=== PATIENT | male | born 2000 | race Caucasian/White ===

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

== ENCOUNTER 2020-09-05 19:37 | Emergency (ER) | payer BC ==
[2020-09-05] MEDS ORDERED: IBUPROFEN 600 MG TAB PO STA (20:13)
[2020-09-05] MEDS ORDERED: ACETAMINOPHEN TAB 500 MG TAB PO STA (20:13)
--- NOTE | 2020-09-05 20:43 | XR ---
EXAMINATION TYPE: XR chest 1V DATE OF EXAM: 09/05/2020 COMPARISON: NONE HISTORY: Fever and shortness of breath. TECHNIQUE: Single frontal view of the chest is obtained. FINDINGS: There is no focal air space opacity, pleural effusion, or pneumothorax seen. The cardiac silhouette size is within normal limits. The osseous structures are intact. IMPRESSION: No acute process.
[2020-09-05 21:25] VITALS: BP 132/65; PULSE 83; RESP 22; TEMP 100.4
--- NOTE | 2020-09-05 21:28 | ED ---
General Adult HPI - General Chief complaint: Fever Stated complaint: Poss Hernia, Groin Pain Time Seen by Provider: 09/05/20 19:49 Source: patient Mode of arrival: ambulatory Limitations: no limitations - History of Present Illness Initial comments: 20-year-old male patient presents to the emergency department today for evaluation of fever. Patient states that a few hours ago he started to feel chilled and cold. States that he thought he may have a fever. States he is concerned because a few days ago at the gym he was lifting 445 pounds and f elt something pull in his right groin. States he feels a very slight pressure over the area now. He did have a right inguinal hernia repair last year and is concerned he may have damaged the area again. Denies any pain to the area. States he is passing gas and having normal bowel movements. Denies nausea, vomiting, constipation, diarrhea. Denies any cough, nasal congestion, sore throat. Denies any rash. Denies sick contacts or recent travel. Patient denies any recent cough, shortness of breath, chest pain, back pain, numbness, tingling, dizziness, weakness, hematuria, dysuria, urinary urgency, urinary frequency, headache, visual changes, or any other complaints. - Related Data Previous Rx's Medication Instructions Recorded Docusate [Colace] 100 mg PO BID #20 capsule 12/14/16 HYDROcodone/APAP 7.5-325MG [Gentry 1 each PO Q4H PRN #60 tab 12/14/16 7.5] Allergies Allergy/AdvReac Type Severity Reaction Status Date / Time No Known Allergies Allergy Verified 09/05/20 19:42 Review of Systems ROS Statement: Those systems with pertinent positive or pertinent negative responses have been documented in the HPI. ROS Other: All systems not noted in ROS Statement are negative. Past Medical History Additional Past Medical History / Comment(s): rt inguinal hernia History of Any Multi-Drug Resistant Organisms: None Reported Past Surgical History: No Surgical Hx Reported Additional Past Anesthesia/Blood Transfusion Reaction / Comment(s): never has had general anesthesia or blood transfusion Past Psychological History: No Psychological Hx Reported Smoking Status: Never smoker Past Alcohol Use History: None Reported Past Drug Use History: None Reported - Past Family History Father Family Medical History: No Reported History Mother Family Medical History: No Reported History General Exam Limitations: no limitations General appearance: alert, in no apparent distress, other (This is a well- developed, well-nourished adult male patient in no acute distress. Vital signs upon presentation are temperature 102.9F, pulse 151, respirations 20, blood pressure 105/31, pulse ox 98% on room air.) Eye exam: Present: normal appearance, PERRL, EOMI. Absent: scleral icterus, conjunctival injection, periorbital swelling ENT exam: Present: normal exam, normal oropharynx, mucous membranes moist Respiratory exam: Present: normal lung sounds bilaterally. Absent: respiratory distress, wheezes, rales, rhonchi, stridor Cardiovascular Exam: Present: regular rate, normal rhythm, normal heart sounds. Absent: systolic murmur, diastolic murmur, rubs, gallop, clicks GI/Abdominal exam: Present: soft, normal bowel sounds, other (Right inguinal region is non tender, no erythema, no masses, hernia, or bulging.). Absent: distended, tenderness, guarding, rebound, rigid Neurological exam: Present: alert, oriented X3, CN II-XII intact Psychiatric exam: Present: normal affect, normal mood Skin exam: Present: warm, dry, intact, normal color. Absent: rash Course Vital Signs 09/05/20 09/05/20 19:40 21:10 Temperature 102.9 F H 100.4 F H Pulse Rate 151 H 83 Respiratory 20 22 Rate Blood Pressure 105/31 132/65 O2 Sat by Pulse 98 98 Oximetry Medical Decision Making - Medical Decision Making 20-year-old male patient percents into the emergency department today for evaluation of fever and right inguinal pressure sensation. Physical examination is unremarkable. There is no evidence for hernia to the right inguinal region. He is nontender over the abdomen and the right inguinal region. Temperature upon arrival to 102.9F. No other symptoms. Remainder physical exam is unremarkable. Chest x-ray is negative. COVID-19 result is negative. I did discuss findings and results with him. We did discuss return parameters and great detail, discuss signs or symptoms of appendicitis as well as viral illnesses to watch out for. Is instructed to follow-up with his primary care physician for recheck tomorrow. Return parameters were discussed in detail. He verbalizes understanding and agrees with this plan. Case discussed with my attending Dr. Ochoa. - Lab Data Lab Results 09/05/20 Range/Units 20:24 Coronavirus (PCR) Not Detected (Not Detectd) - Radiology Data Radiology results: report reviewed, image reviewed One view x-ray of the chest is obtained. Report is reviewed in its entirety. Impression by Dr. Lo shows no acute process. Disposition Clinical Impression: Fever Disposition: HOME SELF-CARE Condition: Good Instructions (If sedation given, give patient instructions): Fever in Adults (ED) Additional Instructions: Alternate Tylenol Motrin for fever control. Follow-up through primary care physician for recheck tomorrow. Return to the emergency department immediately if he develops any new symptoms especially if he developed increased right lower quadrant abdominal pain. Is patient prescribed a controlled substance at d/c from ED?: No Referrals: None,Stated [Primary Care Provider] - 1-2 days Time of Disposition: 21:28
== END 2020-09-05 21:43 | disposition home or self-care (01) ==
LOC: EC 19:37
DX: R50.9 Fever, unspecified (principal); Z20.822 Contact with and (suspected) exposure to COVID-19
CPT/HCPCS: 71045; 87635; 99284